=== PATIENT | female | born 1980 | race Two or more races ===

== ENCOUNTER 2024-11-24 09:03 | Inpatient (IN) | payer OTHER ==
[~2024-11-24] VITALS: Ht 152.4 cm; Wt 95.3 kg
[2024-11-24] MEDS ORDERED: CLONAZEPAM1 MG PO (09:08)
[2024-11-24] MEDS ORDERED: MORPHINE IV (09:08)
[2024-11-24] MEDS ORDERED: CRESTOR40 MG PO (09:09)
[2024-11-24] MEDS ORDERED: ELIQUIS5 MG PO (09:09)
[2024-11-24] MEDS ORDERED: LASIX40 MG PO (09:09)
[2024-11-24] MEDS ORDERED: BUSPIRONE HCL7.5 MG PO (09:10)
[2024-11-24] MEDS ORDERED: LYRICA50 MG PO (09:10)
[2024-11-24] MEDS ORDERED: MORPHINE SULFATE 2 MG/ML SYRINGE IV ONE (11:00)
[2024-11-24] MEDS ORDERED: 0.9 % SODIUM CHLORIDE 1,000 ML IV SCH ×2 (11:00→17:30)
[2024-11-24] MEDS ORDERED: RINGERS SOLUTION,LACTATED 1,000 ML IV STA (11:06)
[2024-11-24] MEDS ORDERED: ACETAMINOPHEN 500 MG GEL..CAP PO ONE (11:08)
[2024-11-24 11:34] LABS: HEMATOCRIT 27.7 % (36.0-45.00); MEAN CELL VOLUME 70.5 fL (80.00-100.00); MEAN CORPUSCULAR HEMOGLOBIN 22.9 pg (27.00-32.0); MEAN CORPUSCULAR HGB CONC 32.5 g/dl (32.0-36.0); PLATELET COUNT 299 K/uL (150-450); RED BLOOD COUNT 3.93 M/uL (4.00-6.00); RED CELL DISTRIBUTION WIDTH 21.7 % (11.5-14.5)
[2024-11-24 12:07] LABS: BILIRUBIN TOTAL 0.93 mg/dL (0.3-1.2); CALCIUM 8.3 mg/dL (8.5-10.1); CREATININE SERUM 0.68 mg/dL (0.55-1.02); GFR 93.57; GLOBULINA 2.7 G/DL (2.4-3.5); POTASSIUM 3.3 mEq/L (3.5-5.1); TOTAL PROTEIN 5.7 gm/dL (6.4-8.2)
[2024-11-24 12:08] LABS: INR 1.05; PARTIAL THROMBOPLASTIN TIME 27.2 SECONDS (22.0-34.0); PROTHROMBIN TIME 11.4 SECONDS (9.0-11.5)
[2024-11-24] MEDS ORDERED: CEFTRIAXONE SODIUM 1,000 MG VIAL IV ONE (13:15)
[2024-11-24] MEDS ORDERED: CEFTRIAXONE SODIUM 1,000 MG VIAL ONE (15:03)
[2024-11-24] MEDS ORDERED: ACETAMINOPHEN 500 MG GEL..CAP PO PRN (18:00)
[2024-11-24] MEDS ORDERED: MORPHINE SULFATE 4 MG/ML VIAL IV ONE (18:00)
[2024-11-24] MEDS ORDERED: ONDANSETRON HCL 4 MG in 0.9 % SODIUM CHLORIDE 50 ML IV PRN (18:00)
[2024-11-24] MEDS ORDERED: INSULIN LISPRO 1,000 UNIT/10 ML UNITS SUBCUTANEO PRN (18:30)
[2024-11-24] MEDS ORDERED: DEXTROSE 50 % IN WATER 0.5 G/ML DISP.SYRIN IV PRN (18:30)
[2024-11-24 18:47] VITALS: BP 100/70; O2SAT 97
[2024-11-24] MEDS ORDERED: MORPHINE SULFATE 2 MG/ML SYRINGE IV STA (18:58)
[2024-11-24] MEDS ORDERED: AZITHROMYCIN 500 MG VIAL IV ONE (20:09)
[2024-11-24] MEDS ORDERED: MORPHINE SULFATE 2 MG/ML CARTRIDGE IV PRN (20:30)
[2024-11-24] MEDS ORDERED: OxyCODONE HCL/APAP UD (PERCOCET) PO PRN (21:00)
[2024-11-24] MEDS ORDERED: AZITHROMYCIN 500 MG VIAL IV SCH (21:00)
[2024-11-25 01:48] VITALS: BP 118/82
[2024-11-25] MEDS ORDERED: MORPHINE SULFATE 4 MG/ML VIAL IV STA (07:42)
[2024-11-25] MEDS ORDERED: AZITHROMYCIN 500 MG VIAL IV ONE ×2 (08:34→19:05)
[2024-11-25 08:53] VITALS: BP 141/82; O2SAT 95
[2024-11-25] MEDS ORDERED: FUROsemide 40 MG TABLET PO SCH (09:00)
[2024-11-25] MEDS ORDERED: CEFTRIAXONE SODIUM 2,000 MG in 0.9 % SODIUM CHLORIDE 100 ML IV SCH (09:00)
[2024-11-25] MEDS ORDERED: PANTOPRAZOLE SODIUM 40 MG/VIAL VIAL IV SCH (09:00)
[2024-11-25] MEDS ORDERED: PREDNISONE 10 MG TABLET PO SCH (09:00)
[2024-11-25] MEDS ORDERED: APIXABAN 5 MG TABLET PO SCH (09:00)
[2024-11-25 11:36] LABS: URINE APPEARANCE Clear; URINE BILIRRUBIN Negative (NEGATIVE); URINE BLOOD Negative; URINE COLOR Yellow; URINE GLUCOSE Negative (NEGATIVE); URINE KETONE Negative (NEGATIVE); URINE LEUKOCYTE Negative; URINE NITRATE Negative; URINE PROTEIN Negative (NEGATIVE); URINE UROBILINOGEN 0.2 E.U./dl
[2024-11-25 11:37] LABS: URINE BACTERIA 296.1 uL (0.0-1933); URINE EPITHELIAL CELLS 13.2 uL (0.0-38.8); URINE RBC 5.5 uL (0.0-20.8); URINE WBC 6.6 uL (0.0-23.2)
[2024-11-25] MEDS ORDERED: LACTOBACILLUS ACIDOPHILUS 1 CAP CAP PO SCH (11:39)
[2024-11-25 11:41] LABS: URINE CAST 0.14 uL (0.0-1.40)
[2024-11-25] MEDS ORDERED: MORPHINE SULFATE 4 MG/ML CARTRIDGE IV PRN (12:30)
[2024-11-25 12:42] LABS: ABG PH 7.479 (7.35-7.45); ABG PO2 130.6 mmHg (80-100); ABG pCO2 32.7 mmHg (35-45); BICARBONATE 23.7 mmol/l (23-25); SaO2 99.2 %
[2024-11-25 12:43] LABS: Tco2 24.7 mmol/l; allen test SATISFACTORY; o2 32 %; puncture site RADIAL LEFT
[2024-11-25] MEDS ORDERED: POTASSIUM CHLORIDE 10 MEQ CAPSULE PO NR (12:55)
[2024-11-25] MEDS ORDERED: CLONAZEPAM 1 MG TABLET PO SCH (13:00)
[2024-11-25 16:33] VITALS: BP 105/51; O2SAT 94
[2024-11-25] MEDS ORDERED: fentaNYL 25 MCG PATCH.TD72 TD ONE (17:45)
[2024-11-25] MEDS ORDERED: MORPHINE SULFATE 4 MG/ML CARTRIDGE IV SCH (20:00)
[2024-11-26 01:48] VITALS: BP 120/73; O2SAT 95
[2024-11-26 06:41] LABS: ALBUMIN 2.8 gm/dL (3.4-5.0); BILIRUBIN TOTAL 0.52 mg/dL (0.3-1.2); CALCIUM 8.4 mg/dL (8.5-10.1); CREATININE SERUM 0.47 mg/dL (0.55-1.02); GFR 143.3; GLOBULINA 2.6 G/DL (2.4-3.5); POTASSIUM 3.21 mEq/L (3.5-5.1); TOTAL PROTEIN 5.4 gm/dL (6.4-8.2)
[2024-11-26 07:00] LABS: HEMATOCRIT 26.3 % (36.0-45.00); MEAN CELL VOLUME 71.3 fL (80.00-100.00); MEAN CORPUSCULAR HEMOGLOBIN 23.5 pg (27.00-32.0); PLATELET COUNT 262 K/uL (150-450); RED BLOOD COUNT 3.69 M/uL (4.00-6.00); RED CELL DISTRIBUTION WIDTH 21.8 % (11.5-14.5)
[2024-11-26 07:25] LABS: HEMOGLOBIN 8.7 g/dL (12.0-15.00)
[2024-11-26 08:28] VITALS: BP 93/58
== END 2024-11-26 17:52 | disposition home or self-care (01) | DRG 194 ==
LOC: ER 09:03 → MEDI 19:23
PROVIDERS: Emergency Medicine; ADMIT Internal Medicine; ATTEND Internal Medicine
PROC: BW24ZZZ Computerized Tomography (CT Scan) of Chest and Abdomen (ICD-10-PCS; principal; 2024-11-24)
DX: J18.9 Pneumonia, unspecified organism (principal); E27.1 Primary adrenocortical insufficiency; I27.20 Pulmonary hypertension, unspecified; I67.1 Cerebral aneurysm, nonruptured; I50.9 Heart failure, unspecified; E11.9 Type 2 diabetes mellitus without complications; Z79.4 Long term (current) use of insulin; Z86.718 Personal history of other venous thrombosis and embolism